=== PATIENT | male | born 1940 | race Caucasian/White ===

== ENCOUNTER 2018-09-19 17:58 | Inpatient (IN) | payer MEDICARE ==
[~2018-09-19] VITALS: Ht 170.2 cm; Wt 78.7 kg
[~2018-09-19 17:58] MED LIST: ASPI81TA31 PO; BIMA2.5D5 EACHEYE; DONE5TAB7 PO; DORZ10DR11 EACHEYE; MEMA10TA PO; SERT100T PO; SIMV80TA90 PO
[2018-09-19] MEDS ORDERED: LIDOCAINE 2% (UROJET) 10 ML JELLY MM ONE ×2 (18:15→18:20)
[2018-09-19] MEDS ORDERED: ONDANSETRON 4 MG/2 ML VIAL IV ONE (18:45)
[2018-09-19] MEDS ORDERED: HYDROMORPHONE 1 MG/1 ML DISP.SYRIN IV ONE ×3 (18:45→20:30)
[2018-09-19 18:48] LABS: BASOPHILS # (AUTO) 0.1 K/uL (0.0-8.0); BASOPHILS % (AUTO) 0.8 % (0.0-2.0); EOSINOPHILS # (AUTO) 0.1 K/uL (0.0-0.7); EOSINOPHILS % (AUTO) 0.8 % (0.0-7.0); HEMOGLOBIN 13.9 g/dL (12.5-16.3); LYMPHOCYTES # (AUTO) 1.1 K/uL (20.0-40.0); LYMPHOCYTES % (AUTO) 9.3 % (20.5-51.5); MEAN CORPUSCULAR HEMOGLOBIN 26.9 uug (23.8-33.4); MEAN CORPUSCULAR HGB CONC 32 g/dL (32.5-36.3); MEAN CORPUSCULAR VOLUME 83.2 fL (73.0-96.2); MONOCYTES # (AUTO) 0.8 K/uL (2.0-10.0); MONOCYTES % (AUTO) 7.1 % (0.0-11.0); NEUTROPHILS # (AUTO) 9.6 K/uL (1.8-8.9); PLATELET COUNT (AUTO) 254 K/uL (152-348); RED BLOOD CELL COUNT(AUTO) 5.18 MIL/uL (4.06-5.63); WHITE BLOOD COUNT (AUTO) 11.7 K/uL (3.6-10.2)
[2018-09-19] MEDS ORDERED: HYDROMORPHONE 1 MG/1 ML DISP.SYRIN ONE ×4 (18:57→21:40)
[2018-09-19 18:58] LABS: CARBON DIOXIDE 25 mmol/L (21-32); CHLORIDE 106 mmol/L (98-107); CREATININE 1.6 mg/dL (0.6-1.3); GLUCOSE 110 mg/dL (74-106); POTASSIUM 4.7 mmol/L (3.5-5.1); UREA NITROGEN, BLOOD 24 mg/dL (7-18)
[2018-09-19] MEDS ORDERED: ONDANSETRON 4 MG/2 ML VIAL ONE (18:58)
[2018-09-19 19:03] LABS: ALANINE AMINOTRANSFERASE 29 U/L (16-63); ALKALINE PHOSPHATASE 87 U/L (50-136); ASPARTATE AMINOTRANSFERASE 16 U/L (15-37); BILIRUBIN,DIRECT 0.1 mg/dL (0.0-0.2); BILIRUBIN,TOTAL 0.3 mg/dL (0.2-1.0); LIPASE 200 U/L (73-393); TOTAL PROTEIN, SERUM 7.5 g/dL (6.4-8.2)
[2018-09-19] MEDS ORDERED: CEFTRIAXONE 1 G in IV DEXTROSE 5% 50 ML IV ONE (19:30)
[2018-09-19] MEDS ORDERED: CEFTRIAXONE 1 G VIAL ONE (19:37)
[2018-09-19 21:23] LABS: *BILIRUBIN,URIN NEGATIVE (NEGATIVE); *BLOOD, URINE 3+ (NEGATIVE); *COLOR,URINE RED (YELLOW); *KETONES,URINE NEGATIVE (NEGATIVE); *UROBILINOGEN,URINE 0.2 E.U./dl (NORMAL); LEUKOCYTE ESTERASE ,URINE TRACE (NEGATIVE); NITRITE, URINE NEGATIVE (NEGATIVE); UGLUCOSE NEGATIVE (NEGATIVE)
[2018-09-19 21:25] LABS: RBC,URINE TNTC /HPF (0-3)
[2018-09-19 21:29] LABS: *CLARITY,URINE BLOODY (CLEAR); BACTERIA,URINE NONE SEEN /HPF (NONE SEEN); SQUAMOUS EPITHELIAL CELL,UR NONE SEEN /HPF (NONE SEEN)
[2018-09-19] MEDS ORDERED: CLONIDINE HCL 0.1 MG TABLET PO ONE (22:30)
[2018-09-19] MEDS ORDERED: CLONIDINE HCL 0.1 MG TABLET ONE (22:35)
[2018-09-19] MEDS ORDERED: TERB250T52 PO (23:08)
[2018-09-19] MEDS ORDERED: DONE10TA11 PO (23:08)
[2018-09-19] MEDS ORDERED: ALFU10TA10 PO (23:08)
[2018-09-19] MEDS ORDERED: FINA5TAB11 PO (23:08)
[2018-09-19] MEDS ORDERED: hydrALAZINE HCL 50 MG TABLET PO SCH (23:45)
[2018-09-19] MEDS ORDERED: ACETAMINOPHEN 325 MG TABLET PO PRN (23:45)
[2018-09-19] MEDS ORDERED: ONDANSETRON 4 MG/2 ML VIAL IV PRN (23:45)
[2018-09-20] VITALS: BP 168/87
[2018-09-20] MEDS: LORAZEPAM 1 MG TABLET PO PRN ×2 (00:32→20:33)
[2018-09-20] MEDS: MORPHINE SULFATE 2 MG/1 ML DISP.SYRIN IV PRN ×4 (03:37→08:37)
[2018-09-20 06:55] VITALS: BP 170/89
[2018-09-20] MEDS ORDERED: LIDOCAINE 2% (UROJET) 10 ML JELLY MM STA (07:03)
[2018-09-20 07:12] LABS: BASOPHILS # (AUTO) 0.1 K/uL (0.0-8.0); BASOPHILS % (AUTO) 0.6 % (0.0-2.0); HEMATOCRIT 38.6 % (36.7-47.1); HEMOGLOBIN 12.6 g/dL (12.5-16.3); LYMPHOCYTES # (AUTO) 0.9 K/uL (20.0-40.0); LYMPHOCYTES % (AUTO) 5.6 % (20.5-51.5); MEAN CORPUSCULAR HEMOGLOBIN 27.2 uug (23.8-33.4); MEAN CORPUSCULAR HGB CONC 33 g/dL (32.5-36.3); MEAN CORPUSCULAR VOLUME 83.6 fL (73.0-96.2); MONOCYTES # (AUTO) 1.6 K/uL (2.0-10.0); MONOCYTES % (AUTO) 9.5 % (0.0-11.0); NEUTROPHILS # (AUTO) 13.9 K/uL (1.8-8.9); NEUTROPHILS % (AUTO) 84.3 % (38.5-71.5); PLATELET COUNT (AUTO) 240 K/uL (152-348); RED BLOOD CELL COUNT(AUTO) 4.62 MIL/uL (4.06-5.63); WHITE BLOOD COUNT (AUTO) 16.5 K/uL (3.6-10.2)
[2018-09-20 07:44] LABS: CARBON DIOXIDE 23 mmol/L (21-32); CHLORIDE 107 mmol/L (98-107); CREATININE 2.1 mg/dL (0.6-1.3); GLUCOSE 141 mg/dL (74-106); MAGNESIUM 2.1 mg/dL (1.8-2.4); PHOSPHOROUS 3.9 mg/dL (2.5-4.9); POTASSIUM 4.7 mmol/L (3.5-5.1); UREA NITROGEN, BLOOD 30 mg/dL (7-18)
[2018-09-20] MEDS ORDERED: IV NS 1000 ML 1,000 ML IV PRN (10:15)
[2018-09-20 11:03] VITALS: BP 116/68
[2018-09-20] MEDS ORDERED: EPHEDRINE SULFATE 50 MG/ML AMPUL MC ONE (14:43)
[2018-09-20] MEDS ORDERED: IRR STERIL WATER FOR IRR 1000 ML BOTTLE IR ONE (14:43)
[2018-09-20] MEDS ORDERED: SEVOFLURANE 250 ML BOTTLE IH ONE (14:43)
[2018-09-20] MEDS ORDERED: DEXAMETHASONE SOD PHOSPHATE 4 MG INJ IV ONE (14:43)
[2018-09-20] MEDS ORDERED: IV NORMAL SALINE 1000 ML BAG IV ONE (14:43)
[2018-09-20] MEDS ORDERED: PHENAZOPYRIDINE HCL 100 MG TABLET PO PRN ×2 (15:30)
[2018-09-20 15:32] VITALS: BP 132/66
[2018-09-20] MEDS: IV D5 1/2 NS 1000 ML 1,000 ML IV PRN (15:44)
[2018-09-20] MEDS: ALFUZOSIN HCL 10 MG TAB.SR.24H PO SCH (15:46)
[2018-09-20] MEDS ORDERED: DORZOLAMIDE/TIMOLOL OPHT DROP 10 ML BOTTLE EACHEYE SCH ×2 (17:00)
[2018-09-20] MEDS ORDERED: MEMANTINE HCL 5 MG TABLET PO SCH (17:00)
[2018-09-20] MEDS ORDERED: CIPROFLOXACIN HCL 250 MG TABLET PO SCH (17:00)
[2018-09-20] MEDS ORDERED: BIMATOPROST 0.01% OPHT DROP 2.5 ML BOTTLE EACHEYE SCH (18:00)
[2018-09-20 20:00] VITALS: BP 148/73
[2018-09-20] MEDS: TIMOLOL MALEATE 0.5% OPHT DROP 5 ML BOTTLE EACHEYE SCH (20:31)
[2018-09-20] MEDS: CEFTRIAXONE 1 G in IV DEXTROSE 5% 50 ML IV SCH (20:32)
[2018-09-20] MEDS: DORZOLAMIDE 2% OPHT DROP 10 ML BOTTLE EACHEYE SCH (20:32)
[2018-09-20] MEDS: LATANOPROST OPHT DROP 2.5 ML BOTTLE EACHEYE SCH (20:32)
[2018-09-20] MEDS: ATORVASTATIN 20 MG TABLET PO SCH (20:32)
[2018-09-21] MEDS: IV D5 1/2 NS 1000 ML 1,000 ML IV PRN ×2 (03:09→15:27)
[2018-09-21 04:18] VITALS: BP 133/60
[2018-09-21 07:43] LABS: BASOPHILS # (AUTO) 0.1 K/uL (0.0-8.0); BASOPHILS % (AUTO) 0.7 % (0.0-2.0); EOSINOPHILS # (AUTO) 0.1 K/uL (0.0-0.7); EOSINOPHILS % (AUTO) 1.4 % (0.0-7.0); HEMATOCRIT 32.6 % (36.7-47.1); HEMOGLOBIN 10.6 g/dL (12.5-16.3); LYMPHOCYTES # (AUTO) 1.6 K/uL (20.0-40.0); LYMPHOCYTES % (AUTO) 15.8 % (20.5-51.5); MEAN CORPUSCULAR HEMOGLOBIN 27.3 uug (23.8-33.4); MEAN CORPUSCULAR HGB CONC 33 g/dL (32.5-36.3); MEAN CORPUSCULAR VOLUME 83.7 fL (73.0-96.2); MONOCYTES # (AUTO) 1.1 K/uL (2.0-10.0); MONOCYTES % (AUTO) 11.2 % (0.0-11.0); NEUTROPHILS # (AUTO) 7.1 K/uL (1.8-8.9); NEUTROPHILS % (AUTO) 70.9 % (38.5-71.5); PLATELET COUNT (AUTO) 196 K/uL (152-348); RED BLOOD CELL COUNT(AUTO) 3.89 MIL/uL (4.06-5.63); WHITE BLOOD COUNT (AUTO) 10.1 K/uL (3.6-10.2)
[2018-09-21 07:44] LABS: CARBON DIOXIDE 28 mmol/L (21-32); CHLORIDE 107 mmol/L (98-107); CREATININE 1.5 mg/dL (0.6-1.3); GLUCOSE 105 mg/dL (74-106); POTASSIUM 4.5 mmol/L (3.5-5.1); UREA NITROGEN, BLOOD 22 mg/dL (7-18)
[2018-09-21 08:00] VITALS: BP 110/50
[2018-09-21] MEDS ORDERED: TERBINAFINE 250 MG TABLET PO SCH (09:00)
[2018-09-21] MEDS ORDERED: MEMANTINE HCL 10 MG TABLET PO SCH (09:00)
[2018-09-21] MEDS: FINASTERIDE 5 MG TABLET PO SCH (09:07)
[2018-09-21] MEDS: DONEPEZIL 10 MG TABLET PO SCH (09:07)
[2018-09-21] MEDS: MEMANTINE HCL 10 MG TABLET PO SCH ×2 (09:07→17:19)
[2018-09-21] MEDS: SERTRALINE HCL 100 MG TABLET PO SCH (09:07)
[2018-09-21] MEDS: ALFUZOSIN HCL 10 MG TAB.SR.24H PO SCH ×2 (09:08→17:18)
[2018-09-21] MEDS: TIMOLOL MALEATE 0.5% OPHT DROP 5 ML BOTTLE EACHEYE SCH ×2 (09:11→20:20)
[2018-09-21] MEDS: DORZOLAMIDE 2% OPHT DROP 10 ML BOTTLE EACHEYE SCH ×2 (09:11→20:20)
[2018-09-21] MEDS: CIPROFLOXACIN HCL 250 MG TABLET PO SCH ×2 (09:57→20:20)
[2018-09-21 11:04] VITALS: BP 129/58
[2018-09-21] MEDS ORDERED: hydrALAZINE HCL 50 MG TABLET PO PRN (14:10)
[2018-09-21 15:47] VITALS: BP 113/58
[2018-09-21 20:00] VITALS: BP 135/49
[2018-09-21] MEDS: LORAZEPAM 1 MG TABLET PO PRN (20:20)
[2018-09-21] MEDS: LATANOPROST OPHT DROP 2.5 ML BOTTLE EACHEYE SCH (20:20)
[2018-09-21] MEDS: ATORVASTATIN 20 MG TABLET PO SCH (20:20)
[2018-09-21] MEDS: CEFTRIAXONE 1 G in IV DEXTROSE 5% 50 ML IV SCH (20:59)
[2018-09-21] MEDS ORDERED: ZOLPIDEM 5 MG TABLET PO PRN (22:45)
[2018-09-22] MEDS: IV D5 1/2 NS 1000 ML 1,000 ML IV PRN (01:42)
[2018-09-22 06:13] VITALS: BP 154/76
[2018-09-22 06:42] LABS: CARBON DIOXIDE 27 mmol/L (21-32); CHLORIDE 105 mmol/L (98-107); CREATININE 1.4 mg/dL (0.6-1.3); GLUCOSE 103 mg/dL (74-106); MAGNESIUM 1.9 mg/dL (1.8-2.4); PHOSPHOROUS 3.3 mg/dL (2.5-4.9); UREA NITROGEN, BLOOD 20 mg/dL (7-18)
[2018-09-22 06:45] LABS: IRON, SERUM 51 ug/dL (50-175)
[2018-09-22 06:57] LABS: BASOPHILS % (AUTO) 0.5 % (0.0-2.0); EOSINOPHILS # (AUTO) 0.2 K/uL (0.0-0.7); EOSINOPHILS % (AUTO) 2.6 % (0.0-7.0); HEMOGLOBIN 11.3 g/dL (12.5-16.3); LYMPHOCYTES # (AUTO) 1.8 K/uL (20.0-40.0); LYMPHOCYTES % (AUTO) 20.2 % (20.5-51.5); MEAN CORPUSCULAR HEMOGLOBIN 27.8 uug (23.8-33.4); MEAN CORPUSCULAR HGB CONC 33 g/dL (32.5-36.3); MEAN CORPUSCULAR VOLUME 83.8 fL (73.0-96.2); MONOCYTES % (AUTO) 11.7 % (0.0-11.0); NEUTROPHILS # (AUTO) 5.7 K/uL (1.8-8.9); PLATELET COUNT (AUTO) 208 K/uL (152-348); RED BLOOD CELL COUNT(AUTO) 4.05 MIL/uL (4.06-5.63); WHITE BLOOD COUNT (AUTO) 8.7 K/uL (3.6-10.2)
[2018-09-22] MEDS: SERTRALINE HCL 100 MG TABLET PO SCH (09:02)
[2018-09-22] MEDS: DONEPEZIL 10 MG TABLET PO SCH (09:02)
[2018-09-22] MEDS: CIPROFLOXACIN HCL 250 MG TABLET PO SCH (09:02)
[2018-09-22] MEDS: DORZOLAMIDE 2% OPHT DROP 10 ML BOTTLE EACHEYE SCH (09:03)
[2018-09-22] MEDS: MEMANTINE HCL 10 MG TABLET PO SCH (09:03)
[2018-09-22] MEDS: FINASTERIDE 5 MG TABLET PO SCH (09:03)
[2018-09-22] MEDS: TIMOLOL MALEATE 0.5% OPHT DROP 5 ML BOTTLE EACHEYE SCH (09:03)
[2018-09-22] MEDS: ALFUZOSIN HCL 10 MG TAB.SR.24H PO SCH (09:21)
[2018-09-22 11:14] VITALS: BP 146/71
== END 2018-09-22 14:45 | disposition home or self-care (01) | DRG 907 ==
LOC: ER 18:01 → MEDSURG3 22:59
PROVIDERS: ADMIT Nurse Practitioner Acute Care; ATTEND Nurse Practitioner Acute Care
PROC: 0T9B70Z Drainage of Bladder with Drainage Device, Via Natural or Artificial Opening (ICD-10-PCS; principal; 2018-09-19)
PROC: 0W3R8ZZ Control Bleeding in Genitourinary Tract, Via Natural or Artificial Opening Endoscopic (ICD-10-PCS; 2018-09-20)
DX: N99.820 Postprocedural hemorrhage of a genitourinary system organ or structure following a genitourinary system procedure (principal); N17.0 Acute kidney failure with tubular necrosis; D62 Acute posthemorrhagic anemia; N13.1 Hydronephrosis with ureteral stricture, not elsewhere classified; N39.0 Urinary tract infection, site not specified; R31.0 Gross hematuria; N40.1 Benign prostatic hyperplasia with lower urinary tract symptoms; R33.8 Other retention of urine; E78.5 Hyperlipidemia, unspecified; G30.9 Alzheimer's disease, unspecified; F02.80 Dementia in other diseases classified elsewhere, unspecified severity, without behavioral disturbance, psychotic disturbance, mood disturbance, and anxiety; Z79.82 Long term (current) use of aspirin; Z79.899 Other long term (current) drug therapy; H40.9 Unspecified glaucoma; Z90.79 Acquired absence of other genital organ(s); N32.89 Other specified disorders of bladder; E83.51 Hypocalcemia; F32.9 Major depressive disorder, single episode, unspecified
CPT/HCPCS: 36415; 51798; 83550; 83690; 83735; 84100; 85025; 85730; 93005; 97116; 97530; A4217; A4663; C1769; G0378; J0696; J1100; J1170; J2270; J2405; J3490; J7030; J7042; J7060; J8499

== ENCOUNTER 2022-12-10 15:44 | Inpatient (IN) | payer MEDICARE ==
[~2022-12-10] VITALS: Ht 170.2 cm; Wt 79.9 kg
[~2022-12-10 15:44] MED LIST changes: +ALFU10TA10 PO; -ASPI81TA31 PO; +DONE10TA11 PO; -DONE5TAB7 PO; +FINA5TAB11 PO; +TERB250T52 PO
[2022-12-10] MEDS ORDERED: AZITHROMYCIN IV 500 MG in IV DEXTROSE 5% 250 ML IV ONE (16:00)
[2022-12-10] MEDS ORDERED: IV NORMAL SALINE 1000 ML BAG IV ONE (16:00)
[2022-12-10] MEDS ORDERED: CEFTRIAXONE 1 G in IV DEXTROSE 5% 50 ML IV ONE (16:00)
[2022-12-10 16:19] LABS: BASOPHILS # (AUTO) 0.1 K/UL (0.0-0.2); BASOPHILS % (AUTO) 0.6 % (0.0-2.0); EOSINOPHILS % (AUTO) 0.1 % (0.0-7.0); HEMATOCRIT 48.9 % (36.7-47.1); HEMOGLOBIN 16.1 g/dL (12.5-16.3); LYMPHOCYTES % (AUTO) 8.7 % (20.5-51.5); MEAN CORPUSCULAR HEMOGLOBIN 27.9 uug (23.8-33.4); MEAN CORPUSCULAR HGB CONC 33 g/dL (32.5-36.3); MEAN CORPUSCULAR VOLUME 85.1 fL (73.0-96.2); MONOCYTES # (AUTO) 1.7 K/uL (0.1-1.30); MONOCYTES % (AUTO) 14.9 % (0.0-11.0); NEUTROPHILS # (AUTO) 8.5 K/uL (1.8-8.9); NEUTROPHILS % (AUTO) 75.7 % (38.5-71.5); PLATELET COUNT (AUTO) 146 K/uL (152-348); RED BLOOD CELL COUNT(AUTO) 5.74 MIL/uL (4.06-5.63); WHITE BLOOD COUNT (AUTO) 11.3 K/uL (3.6-10.2)
[2022-12-10] MEDS ORDERED: CEFTRIAXONE /D5W 50ML IVPB **ER PYXIS IV ONE (16:21)
[2022-12-10] MEDS ORDERED: AZITHROMYCIN 500MG/ D5W 250ML IVPB **ER PYXIS ONLY IV ONE (16:21)
[2022-12-10 16:28] LABS: DIFFERENTIAL COMMENT 1
[2022-12-10 17:01] LABS: *BILIRUBIN,URIN NEGATIVE (NEGATIVE); *BLOOD, URINE 3+ (NEGATIVE); *CLARITY,URINE CLEAR (CLEAR); *COLOR,URINE YELLOW (YELLOW); *KETONES,URINE NEGATIVE (NEGATIVE); *PROTEIN,URINE 1+ (NEGATIVE); *UROBILINOGEN,URINE 0.2 E.U./dl (NORMAL); LEUKOCYTE ESTERASE ,URINE NEGATIVE (NEGATIVE); NITRITE, URINE NEGATIVE (NEGATIVE); PH,URINE 5.5 (5.0-8.0); UGLUCOSE NEGATIVE (NEGATIVE)
[2022-12-10 17:02] LABS: CALCIUM 9.3 mg/dL (8.5-10.1); CARBON DIOXIDE 27 mmol/L (21-32); CHLORIDE 103 mmol/L (98-107); CREATININE 1.6 mg/dL (0.6-1.3); GLUCOSE 96 mg/dL (74-106); POTASSIUM 4.1 mmol/L (3.5-5.1); SODIUM SERUM 140 mmol/L (136-145); UREA NITROGEN, BLOOD 38 mg/dL (7-18)
[2022-12-10 17:22] LABS: ALANINE AMINOTRANSFERASE 35 U/L (16-63); ALBUMIN 3.7 g/dL (3.4-5.0); ALKALINE PHOSPHATASE 70 U/L (50-136); ASPARTATE AMINOTRANSFERASE 99 U/L (15-37); BILIRUBIN,DIRECT 0.3 mg/dL (0.0-0.2); TOTAL PROTEIN, SERUM 7.8 g/dL (6.4-8.2)
[2022-12-10 17:25] LABS: WBC,URINE 0-3 /HPF (0-3)
[2022-12-10 17:26] LABS: BACTERIA,URINE MODERATE /HPF (NONE SEEN); SQUAMOUS EPITHELIAL CELL,UR MODERATE /HPF (NONE SEEN)
[2022-12-10 19:44] LABS: ABG BASE EXCESS -1.8 mmol/L; ABG HCO3 21.4 mmol/L; ABG PCO2 32.4 mmHg (35.0-45.0); ABG PH 7.437 (7.350-7.450); ABG SITE LEFT BRACHIAL; ABG TOTAL HEMOGLOBIN 15.4 G/dL (13.5-18.0); COHb 0.6 % (0.5-1.5); MetHb 0.3 % (0.0-1.5); O2Hb 92.2 % (94.0-97.0); VENT MODE ROOM AIR
[2022-12-10] MEDS ORDERED: DEXAMETHASONE SOD PHOSPHATE 4 MG INJ IV ONE (20:00)
[2022-12-10 21:30] VITALS: O2SAT 98
[2022-12-10] MEDS ORDERED: DEXAMETHASONE SOD PHOSPHATE 4 MG INJ ONE (21:57)
[2022-12-10] MEDS ORDERED: ACETAMINOPHEN 325 MG TABLET PO PRN (22:45)
[2022-12-10] MEDS ORDERED: ONDANSETRON 4 MG/2 ML VIAL IV PRN (22:45)
[2022-12-10] MEDS ORDERED: MAGNESIUM HYDROXIDE 30 ML LIQUID UDC PO PRN (22:45)
[2022-12-10] MEDS ORDERED: ALBUTEROL SULFATE 2.5 MG/3 ML NEBU NEB PRN (22:45)
[2022-12-10] MEDS ORDERED: REMEDY ESSENTIAL ZINC PASTE 113 GM TP PRN (22:45)
[2022-12-10] MEDS: ENOXAPARIN SODIUM 40 MG/0.4 ML DISP.SYRIN SQ SCH (22:54)
[2022-12-10 23:05] VITALS: BP 150/81; TEMP 97.8; O2SAT 97
[2022-12-11] VITALS (7 sets, daily range): BP systolic 136–164; BP diastolic 40–77; TEMP 97.4–98.3; O2SAT 93–99
[2022-12-11 06:13] LABS: BASOPHILS % (AUTO) 0.5 % (0.0-2.0); DIFFERENTIAL COMMENT 1; EOSINOPHILS % (AUTO) 0.1 % (0.0-7.0); HEMOGLOBIN 14.8 g/dL (12.5-16.3); LYMPHOCYTES # (AUTO) 1.2 K/uL (0.8-4.8); LYMPHOCYTES % (AUTO) 13.3 % (20.5-51.5); MEAN CORPUSCULAR HEMOGLOBIN 28.4 uug (23.8-33.4); MEAN CORPUSCULAR HGB CONC 34 g/dL (32.5-36.3); MEAN CORPUSCULAR VOLUME 84.6 fL (73.0-96.2); MONOCYTES # (AUTO) 1.6 K/uL (0.1-1.30); MONOCYTES % (AUTO) 18.1 % (0.0-11.0); NEUTROPHILS # (AUTO) 6.1 K/uL (1.8-8.9); PLATELET COUNT (AUTO) 122 K/uL (152-348); RED CELL DISTRIBUTION WIDTH 13.8 % (12.1-16.2); WHITE BLOOD COUNT (AUTO) 8.9 K/uL (3.6-10.2)
[2022-12-11 06:40] LABS: CARBON DIOXIDE 23 mmol/L (21-32); CHLORIDE 106 mmol/L (98-107); CREATININE 1.4 mg/dL (0.6-1.3); GLUCOSE 80 mg/dL (74-106); MAGNESIUM 2.3 mg/dL (1.8-2.4); PHOSPHOROUS 3.6 mg/dL (2.5-4.9); SODIUM SERUM 139 mmol/L (136-145); UREA NITROGEN, BLOOD 33 mg/dL (7-18)
[2022-12-11 07:07] LABS: CALCIUM 8.4 mg/dL (8.5-10.1)
[2022-12-11] MEDS: DORZOLAMIDE/TIMOLOL OPHT DROP 10 ML BOTTLE EACHEYE SCH ×2 (10:27→21:00)
[2022-12-11] MEDS: DONEPEZIL 10 MG TABLET PO SCH (10:28)
[2022-12-11] MEDS: SERTRALINE HCL 100 MG TABLET PO SCH (10:28)
[2022-12-11] MEDS: FINASTERIDE 5 MG TABLET PO SCH (10:28)
[2022-12-11] MEDS: MEMANTINE HCL 10 MG TABLET PO SCH ×2 (10:28→22:02)
[2022-12-11] MEDS: DEXAMETHASONE SOD PHOSPHATE 10 MG INJ IV SCH (10:29)
[2022-12-11 13:28] LABS: BASOPHILS % (MANUAL) 1 % (0-2); EOSINOPHILS % (MANUAL) 1 % (0-8); LYMPHOCYTES % (MANUAL) 9 % (20-40); MONOCYTES % (MANUAL) 11 % (2-10); NEUTROPHILS % (MANUAL) 78 % (42-75); PLATELET ESTIMATE DECREASED
[2022-12-11 13:32] LABS: ANISOCYTOSIS 1+
[2022-12-11] MEDS: AZITHROMYCIN IV 500 MG in IV DEXTROSE 5% 250 ML IV SCH (15:19)
[2022-12-11] MEDS: CEFTRIAXONE 1 G in IV DEXTROSE 5% 50 ML IV SCH (17:47)
[2022-12-11] MEDS: ENOXAPARIN SODIUM 40 MG/0.4 ML DISP.SYRIN SQ SCH (22:08)
[2022-12-12 02:00] VITALS: O2SAT 95
[2022-12-12 04:55] VITALS: BP 126/62; TEMP 98
[2022-12-12 05:44] LABS: BASOPHILS % (AUTO) 0.3 % (0.0-2.0); HEMATOCRIT 44.9 % (36.7-47.1); HEMOGLOBIN 14.9 g/dL (12.5-16.3); LYMPHOCYTES # (AUTO) 0.9 K/uL (0.8-4.8); LYMPHOCYTES % (AUTO) 10.3 % (20.5-51.5); MEAN CORPUSCULAR HEMOGLOBIN 28.3 uug (23.8-33.4); MEAN CORPUSCULAR HGB CONC 33 g/dL (32.5-36.3); MONOCYTES # (AUTO) 1.2 K/uL (0.1-1.30); MONOCYTES % (AUTO) 13.2 % (0.0-11.0); NEUTROPHILS # (AUTO) 6.9 K/uL (1.8-8.9); NEUTROPHILS % (AUTO) 76.2 % (38.5-71.5); PLATELET COUNT (AUTO) 138 K/uL (152-348); RED BLOOD CELL COUNT(AUTO) 5.28 MIL/uL (4.06-5.63); WHITE BLOOD COUNT (AUTO) 9.1 K/uL (3.6-10.2)
[2022-12-12 06:10] LABS: DIFFERENTIAL COMMENT 1
[2022-12-12 06:35] LABS: CALCIUM 8.9 mg/dL (8.5-10.1); CARBON DIOXIDE 27 mmol/L (21-32); CHLORIDE 106 mmol/L (98-107); CREATININE 1.4 mg/dL (0.6-1.3); GLUCOSE 113 mg/dL (74-106); POTASSIUM 4.3 mmol/L (3.5-5.1); SODIUM SERUM 141 mmol/L (136-145); UREA NITROGEN, BLOOD 38 mg/dL (7-18)
[2022-12-12 08:00] VITALS: BP 165/80; TEMP 98.7; O2SAT 97
[2022-12-12] MEDS: DORZOLAMIDE/TIMOLOL OPHT DROP 10 ML BOTTLE EACHEYE SCH ×2 (08:26→21:00)
[2022-12-12] MEDS: DEXAMETHASONE SOD PHOSPHATE 10 MG INJ IV SCH (08:34)
[2022-12-12] MEDS: DONEPEZIL 10 MG TABLET PO SCH (08:34)
[2022-12-12] MEDS: SERTRALINE HCL 100 MG TABLET PO SCH (08:34)
[2022-12-12] MEDS: LORAZEPAM 2 MG/1 ML VIAL IV PRN ×2 (08:35→21:30)
[2022-12-12] MEDS: MEMANTINE HCL 10 MG TABLET PO SCH ×2 (08:35→22:28)
[2022-12-12] MEDS: FINASTERIDE 5 MG TABLET PO SCH (08:35)
[2022-12-12 12:00] VITALS: BP 143/68; TEMP 98.4; O2SAT 97
[2022-12-12] MEDS: AZITHROMYCIN IV 500 MG in IV DEXTROSE 5% 250 ML IV SCH (15:03)
[2022-12-12 16:14] VITALS: BP 143/68; TEMP 98.2; O2SAT 97
[2022-12-12] MEDS: CEFTRIAXONE 1 G in IV DEXTROSE 5% 50 ML IV SCH (17:01)
[2022-12-12 20:59] VITALS: BP 116/60; TEMP 99; O2SAT 95
[2022-12-12] MEDS: ENOXAPARIN SODIUM 40 MG/0.4 ML DISP.SYRIN SQ SCH (22:29)
[2022-12-13 06:20] VITALS: BP 128/52; TEMP 98.6; O2SAT 94
[2022-12-13 06:29] LABS: BASOPHILS % (AUTO) 0.4 % (0.0-2.0); EOSINOPHILS % (AUTO) 0.1 % (0.0-7.0); HEMATOCRIT 44.6 % (36.7-47.1); HEMOGLOBIN 14.8 g/dL (12.5-16.3); LYMPHOCYTES # (AUTO) 1.2 K/uL (0.8-4.8); LYMPHOCYTES % (AUTO) 13.1 % (20.5-51.5); MEAN CORPUSCULAR HEMOGLOBIN 28.2 uug (23.8-33.4); MEAN CORPUSCULAR HGB CONC 33 g/dL (32.5-36.3); MONOCYTES # (AUTO) 1.1 K/uL (0.1-1.30); MONOCYTES % (AUTO) 11.6 % (0.0-11.0); NEUTROPHILS # (AUTO) 6.9 K/uL (1.8-8.9); NEUTROPHILS % (AUTO) 74.8 % (38.5-71.5); PLATELET COUNT (AUTO) 146 K/uL (152-348); RED BLOOD CELL COUNT(AUTO) 5.25 MIL/uL (4.06-5.63); RED CELL DISTRIBUTION WIDTH 13.8 % (12.1-16.2); WHITE BLOOD COUNT (AUTO) 9.3 K/uL (3.6-10.2)
[2022-12-13 06:40] LABS: DIFFERENTIAL COMMENT 1
[2022-12-13 06:42] LABS: CALCIUM 8.9 mg/dL (8.5-10.1); CARBON DIOXIDE 29 mmol/L (21-32); CHLORIDE 106 mmol/L (98-107); CREATININE 1.5 mg/dL (0.6-1.3); GLUCOSE 92 mg/dL (74-106); POTASSIUM 4.1 mmol/L (3.5-5.1); UREA NITROGEN, BLOOD 45 mg/dL (7-18)
[2022-12-13 07:26] LABS: SODIUM SERUM 140 mmol/L (136-145)
[2022-12-13] MEDS: FINASTERIDE 5 MG TABLET PO SCH (08:42)
[2022-12-13] MEDS: DEXAMETHASONE SOD PHOSPHATE 10 MG INJ IV SCH (08:42)
[2022-12-13] MEDS: DONEPEZIL 10 MG TABLET PO SCH (08:42)
[2022-12-13] MEDS: SERTRALINE HCL 100 MG TABLET PO SCH (08:42)
[2022-12-13] MEDS: MEMANTINE HCL 10 MG TABLET PO SCH (08:42)
[2022-12-13] MEDS: DORZOLAMIDE/TIMOLOL OPHT DROP 10 ML BOTTLE EACHEYE SCH (08:43)
[2022-12-13 09:55] VITALS: BP 120/60; TEMP 98.2; O2SAT 99
[2022-12-13] MEDS: AZITHROMYCIN IV 500 MG in IV DEXTROSE 5% 250 ML IV SCH (15:16)
[2022-12-13 15:46] VITALS: O2SAT 97
[2022-12-13] MEDS: CEFTRIAXONE 1 G in IV DEXTROSE 5% 50 ML IV SCH (17:00)
[2022-12-13 17:55] VITALS: BP 116/60; TEMP 98.6; O2SAT 95
== END 2022-12-13 19:00 | DRG 177 ==
LOC: ER 15:44 → TELE3 20:53 → TELE-TD3 21:49 → TELE3 12-12 13:00
PROVIDERS: ADMIT Internal Medicine; ATTEND Internal Medicine
DX: U07.1 COVID-19 (principal); G93.41 Metabolic encephalopathy; J96.01 Acute respiratory failure with hypoxia; N17.0 Acute kidney failure with tubular necrosis; F02.83 Dementia in other diseases classified elsewhere, unspecified severity, with mood disturbance; F32.9 Major depressive disorder, single episode, unspecified; H40.9 Unspecified glaucoma; N18.9 Chronic kidney disease, unspecified; N40.0 Benign prostatic hyperplasia without lower urinary tract symptoms; R53.1 Weakness; E78.5 Hyperlipidemia, unspecified; G30.9 Alzheimer's disease, unspecified; E86.0 Dehydration; I12.9 Hypertensive chronic kidney disease with stage 1 through stage 4 chronic kidney disease, or unspecified chronic kidney disease; F09 Unspecified mental disorder due to known physiological condition
CPT/HCPCS: 36415; 36600; 70030-TC; 71045; 83605; 83735; 84100; 84484; 85025; 85730; 87040; 93005; A4663; C1758; G0378; J0456; J0696; J1100; J1650; J2060; J7040; J7050